=== PATIENT | female | born 1990 | race Caucasian/White ===

== ENCOUNTER 2023-03-20 18:30 | Inpatient (IN) ==
[2023-03-20] MEDS ORDERED: Al Hydrox/Mg Hydrox/Simet LIQ 30 ML UDC PO PRN (20:25)
[2023-03-20] MEDS ORDERED: Nicotine GUM 2MG FRUIT FLAVOR PO PRN (21:00)
[2023-03-20] MEDS ORDERED: Albuterol HFA INHALER 8 gm MDI INH SCH (23:00)
[2023-03-21] MEDS: Vitamin THERAPEUTIC TAB PO SCH (07:37)
[2023-03-21 08:13] LABS: ABS Eosinophils 0.2 10^3/uL (0.0-0.5); ABS Lymphocytes 2.8 10^3/uL (1.0-4.8); ABS Monocytes 1.1 10^3/uL (0.0-0.9); ABS Neutrophils 6.2 10^3/uL (1.5-7.6); ABS Nucleated RBC 0.01 10^3/ul; Eosinophil % 1.9 %; Hematocrit 43.8 % (35-45); Hemoglobin 15.2 g/dL (11.5-14.3); Lymphocyte % 26.9 %; Mean Corpuscular Hemoglobin 30.5 pg (27-33); Mean Corpuscular Hgb Conc 34.8 g/dL (31-36); Mean Corpuscular Volume 87.5 fL (80-97); Mean Platelet Volume 8.6 fL (7.5-11.2); Nucleated Red Blood Cells % 0.1 /100 WBC (0.0-0.4); Platelet Count 343 10^3/uL (150-450); Red Cell Distribution Width 13.5 % (12-17); White Blood Count 10.3 10^3/uL (3.8-11.8)
[2023-03-21 08:28] LABS: Albumin 4.6 g/dL (3.2-5.2); Albumin/Globulin Ratio 1.9 (1-3); Calcium 9.4 mg/dL (8.6-10.3); Creatinine, Serum 0.71 mg/dL (0.51-0.95); Globulin 2.4 g/dL (2-4); Potassium 3.7 mmol/L (3.5-5.0); Total Bilirubin 0.8 mg/dL (0.2-1.0); eGFR CKD-EPI 117.2 (>60)
[2023-03-21 08:32] LABS: HDL Cholesterol 56.3 mg/dL
[2023-03-21] MEDS: Mometasone 220 MCG MDI INH SCH (19:14)
[2023-03-21] MEDS ORDERED: OLANZapine 5 mg TAB *ODT PO SCH (21:00)
[2023-03-22] MEDS: Vitamin THERAPEUTIC TAB PO SCH (07:41)
[2023-03-22] MEDS: Albuterol HFA INHALER 8 gm MDI INH PRN (08:02)
[2023-03-22] MEDS ORDERED: CMCS: Testosterone GEL 1.62% 40.5 MG/2.5 GM GEL (NF) TOPICAL SCH (09:00)
[2023-03-22] MEDS: OLANZapine 10 mg TAB*ODT PO SCH (19:27)
[2023-03-22] MEDS ORDERED: Lorazepam PYXIS KEY PRN (20:09)
[2023-03-22] MEDS ORDERED: Haloperidol 5 mg/ml SDV IV/IM 5 MG/ML AMP IM ONE (21:00)
[2023-03-22] MEDS ORDERED: LORazepam 2 mg VIAL 1 ml IM ONE (21:00)
[2023-03-23] MEDS: Mometasone 220 MCG MDI INH SCH ×2 (04:10→20:23)
[2023-03-23] MEDS: Vitamin THERAPEUTIC TAB PO SCH (08:16)
[2023-03-23] MEDS: TESTOSTERONE TOPICAL SCH (08:17)
[2023-03-23] MEDS: OLANZapine 10 mg TAB*ODT PO SCH (20:25)
[2023-03-24] MEDS: Vitamin THERAPEUTIC TAB PO SCH (08:02)
[2023-03-24] MEDS: TESTOSTERONE TOPICAL SCH (08:03)
[2023-03-24] MEDS ORDERED: Haloperidol 5 mg/ml SDV IV/IM 5 MG/ML AMP ONE (19:27)
[2023-03-24] MEDS ORDERED: LORazepam 2 mg VIAL 1 ml ONE (19:28)
[2023-03-24] MEDS: Mometasone 220 MCG MDI INH SCH (19:55)
[2023-03-24] MEDS: OLANZapine 5 mg TAB *ODT PO SCH (23:18)
[2023-03-25] MEDS: Vitamin THERAPEUTIC TAB PO SCH (08:38)
[2023-03-25] MEDS: TESTOSTERONE TOPICAL SCH (08:39)
[2023-03-25] MEDS: Albuterol HFA INHALER 8 gm MDI INH PRN (12:01)
[2023-03-25 14:44] LABS: UR Gamma-amino-n-butyric Acid 3 nmol/mg Cr (<5); Urine 1 Methylhylhistidine 17 nmol/mg Cr (23-1339); Urine 3-Methylhstidine 100 nmol/mg Cr (70-246); Urine A-Amino-N-Butyric Acid 12 nmol/mg Cr (<19); Urine A-Aminoadipic Acid 6 nmol/mg Cr (<47); Urine Alanine 66 nmol/mg Cr (56-518); Urine Allo-isoleucine 0 nmol/mg Cr (<7); Urine Anserine 1 nmol/mg Cr (<38); Urine Arginine 89 nmol/mg Cr (<114); Urine Argininosuccinic Acid 6 nmol/mg Cr (<15); Urine Asparagine 47 nmol/mg Cr (25-238); Urine Aspartic Acid 5 nmol/mg Cr (<10); Urine B-Alanine 20 nmol/mg Cr (<52); Urine B-Aminoisobutyric Acid 502 nmol/mg Cr (<301); Urine Carnosine 6 nmol/mg Cr (<35); Urine Citrulline 1 nmol/mg Cr (<12); Urine Cystathionine <1 nmol/mg Cr (<30); Urine Cystine 38 nmol/mg Cr (10-98); Urine Ethanolamine 253 nmol/mg Cr (95-471); Urine Glutamic Acid 36 nmol/mg Cr (<34); Urine Glutamine 211 nmol/mg Cr (93-686); Urine Glycine 941 nmol/mg Cr (229-2989); Urine Histidine 143 nmol/mg Cr (81-1128); Urine Homocitrulline 4 nmol/mg Cr (<30); Urine Hydroxylysine 2 nmol/mg Cr (<12); Urine Hydroxyproline 1 nmol/mg Cr (<15); Urine Isoleucine 11 nmol/mg Cr (<22); Urine Leucine 23 nmol/mg Cr (<51); Urine Lysine 21 nmol/mg Cr (15-271); Urine Methionine 5 nmol/mg Cr (<16); Urine Ornithine 6 nmol/mg Cr (<25); Urine Phenylalanine 16 nmol/mg Cr (13-70); Urine Phosphoethanolamine 8 nmol/mg Cr (<48); Urine Phosphoserine 0 nmol/mg Cr (<1); Urine Proline 7 nmol/mg Cr (<26); Urine Sarcosine 0 nmol/mg Cr (<3); Urine Serine 258 nmol/mg Cr (97-540); Urine Taurine 31 nmol/mg Cr (24-1531); Urine Threonine 48 nmol/mg Cr (31-278); Urine Tryptophan 18 nmol/mg Cr (18-114); Urine Tyrosine 18 nmol/mg Cr (15-115); Urine Valine 24 nmol/mg Cr (11-61)
[2023-03-25] MEDS ORDERED: OLANZapine 5 mg TAB *ODT PO PRN (15:15)
[2023-03-25] MEDS: OLANZapine 5 mg TAB *ODT PO SCH (19:32)
[2023-03-26] MEDS: TESTOSTERONE TOPICAL SCH (07:41)
[2023-03-26] MEDS: Vitamin THERAPEUTIC TAB PO SCH (07:41)
[2023-03-26] MEDS: Mometasone 220 MCG MDI INH SCH ×3 (15:24→21:51)
[2023-03-26] MEDS: OLANZapine 5 mg TAB *ODT PO SCH (20:20)
[2023-03-27] MEDS: Vitamin THERAPEUTIC TAB PO SCH (07:38)
[2023-03-27] MEDS: TESTOSTERONE TOPICAL SCH (07:38)
[2023-03-27] MEDS: OLANZapine 5 mg TAB *ODT PO SCH (20:51)
[2023-03-27] MEDS: Mometasone 220 MCG MDI INH SCH (20:54)
[2023-03-28] MEDS: TESTOSTERONE TOPICAL SCH (08:21)
[2023-03-28] MEDS: Vitamin THERAPEUTIC TAB PO SCH (08:21)
[2023-03-28] MEDS: CMCS:LoraTADine 10 mg TAB (NF) PO SCH (16:25)
[2023-03-28] MEDS ORDERED: Saline NASAL SPRAY 0.65% BTL BOTH NARES PRN (17:06)
[2023-03-28] MEDS: OLANZapine 5 mg TAB *ODT PO SCH (20:05)
[2023-03-28] MEDS: Mometasone 220 MCG MDI INH SCH (20:10)
[2023-03-29] MEDS: Vitamin THERAPEUTIC TAB PO SCH (07:19)
[2023-03-29] MEDS: CMCS:LoraTADine 10 mg TAB (NF) PO SCH (07:19)
[2023-03-29] MEDS: TESTOSTERONE TOPICAL SCH (07:19)
[2023-03-29 12:08] VITALS: BP 117/77
== END 2023-03-29 12:43 | disposition home or self-care (01) | DRG 753 ==
LOC: ED 18:30 → EDHOLD 20:00 → BSU 21:02
PROVIDERS: ADMIT Psychiatry & Neurology Psychiatry; ATTEND Psychiatry & Neurology Psychiatry